=== PATIENT | female | born 1945 | race Two or more races ===

== ENCOUNTER 2019-11-23 18:57 | Emergency (ER) | payer MEDICARE, MEDICAID ==
[~2019-11-23] VITALS: Ht 152.4 cm; Wt 90.3 kg
[2019-11-23 19:16] VITALS: BP 138/94
--- NOTE | 2019-11-23 19:31 | PHYS DOC ---
Adult General Chief Complaint Chief Complaint: Congestion HPI HPI 73-year-old female presents to the emergency department with cough and congestion times one day. She does have positive sputum production. She describes symptoms started yesterday afternoon. She did have fever last night however that has subsequently resolved. She denies any nausea, vomiting, diarrhea. States her great-grandchildren have both had RSV. Patient's un derlying history of hypertension, diabetes, asthma, hypothyroid. Nothing makes her symptoms worse, nothing makes her symptoms better on exam. Review of Systems Review of Systems Constitutional: fever last night, not currently Eyes: Denies change in visual acuity, redness, or eye pain [] HENT: + congestion Respiratory: cough, SOB at times Cardiovascular: No additional information not addressed in HPI [] GI: Denies abdominal pain, nausea, vomiting, bloody stools or diarrhea [] Neurologic: Denies headache, focal weakness or sensory changes [] All other systems were reviewed and found to be within normal limits, except as documented in this note. Current Medications Current Medications Current Medications Medications (Trade) Dose Ordered Sig/Regla Start Time Stop Time Status Last Admin Dose Admin Albuterol/ Ipratropium (Duoneb) 3 ml 1X ONCE 11/23/19 19:45 11/23/19 19:46 DC 11/23/19 19:47 3 ML Prednisone (Prednisone) 60 mg 1X ONCE 11/23/19 19:45 11/23/19 19:46 DC 11/23/19 19:43 60 MG Allergies Allergies Allergies Coded Allergies Type Severity Reaction Last Updated Verified Iodinated Contrast Media Allergy Intermediate 11/23/19 Yes Physical Exam Physical Exam Constitutional: Well developed, well nourished, no acute distress, non-toxic appearance. [] HENT: Normocephalic, atraumatic, bilateral external ears normal, oropharynx moist, no oral exudates, nose normal. [] Neck: Normal range of motion, no tenderness, supple, no stridor. [] Cardiovascular:Heart rate regular rhythm, no murmur [] Lungs & Thorax: decreased BS, occasional wheeze Abdomen: Bowel sounds normal, soft, no tenderness, no masses, no pulsatile masses. [] Skin: Warm, dry, no erythema, no rash. [] Back: No tenderness, no CVA tenderness. [] Extremities: No tenderness, no edema. [] Neurologic: Alert and oriented X 3, no focal deficits noted. [] Psychologic: Affect normal, judgement normal, mood normal. [] Current Patient Data Vital Signs Vital Signs Date Time Temp Pulse Resp B/P (MAP) Pulse Ox O2 Delivery O2 Flow Rate FiO2 11/23/19 19:50 Room Air 11/23/19 19:16 97.8 86 16 138/94 (109) 93 97.8 EKG EKG [] Radiology/Procedures Radiology/Procedures Wet read reveals no acute consolidation appreciated, official read pending[] Course & Med Decision Making Course & Med Decision Making Pertinent Labs and Imaging studies reviewed. (See chart for details) [] 73-year-old female presents to the emergency department with cough and congestion times one day. She does have positive sputum production. She describes symptoms started yesterday afternoon. She did have fever last night however that has subsequently resolved. She denies any nausea, vomiting, diarrhea. States her great-grandchildren have both had RSV. Patient's underlying history of hypertension, diabetes, asthma, hypothyroid. Nothing makes her symptoms worse, nothing makes her symptoms better on exam. Duoneb x 1 Prednisone 60mg po x 1 Xray without acute consolidation appreciated Discussed with patient - recommend follow up with PCP, continue albuterol as needed per home, plan steroid burst over the next 2 days Discussed discharge plans with patient. Jessica Disclaimer Jessica Disclaimer This electronic medical record was generated, in whole or in part, using a voice recognition dictation system. Departure Departure Impression: Primary Impression: URI (upper respiratory infection) Additional Impression: Acute asthma flare Disposition: 01 HOME, SELF-CARE Condition: IMPROVED Referrals: NO PCP (PCP) Patient Instructions: Asthma, Adult, [id number], Upper Respiratory Infection, Adult, [id number] Additional Instructions: Recommend follow up with PCP 3 - 5 days Return to the ER with worsening symptoms, intractable pain, fever, altered mental status Tylenol/Motrin as needed for pain No antibiotics at this time CXR without acute process identified Prednisone 60mg po x 2 days Scripts [Prednisone] 10 mg No Conflict Check 60 MG PO DAILY for 2 Days, #12 % Prov: STEVEN SOLIS MD 11/23/19 Problem Qualifiers Primary Impression: URI (upper respiratory infection) URI type: unspecified URI Qualified Codes: J06.9 - Acute upper respiratory infection, unspecified Additional Impression: Acute asthma flare Asthma severity: mild Asthma persistence: unspecified Qualified Codes: J45.901 - Unspecified asthma with (acute) exacerbation STEVEN SOLIS MD Nov 23, 2019 19:31
[2019-11-23] MEDS: predniSONE 10 MG TABLET PO ONE (19:43)
[2019-11-23] MEDS: IPRATRPIUM/ALBUTEROL 0.5/2.5MG 3 ML NEBU. NEB ONE (19:47)
[2019-11-23] MEDS ORDERED: Prednisone PO (20:28)
--- NOTE | 2019-11-23 21:46 | RAD ---
CHEST PA LATERAL History: Cough, wheezing Comparison: None. Findings: Frontal and lateral views of the chest were obtained. The cardiomediastinal silhouette is normal. Pulmonary vasculature is normal. The lungs are clear. No pleural effusion or pneumothorax is seen. There is no acute bone abnormality. Degenerative changes of the cervical spine noted. IMPRESSION: No acute cardiopulmonary process. Electronically signed by: Darian Craig MD (11/23/2019 9:43 PM) [facility]
== END 2019-11-23 20:31 | disposition home or self-care (01) ==
LOC: ER 18:57
DX: J45.901 Unspecified asthma with (acute) exacerbation (principal); J06.9 Acute upper respiratory infection, unspecified; I10 Essential (primary) hypertension; E11.9 Type 2 diabetes mellitus without complications; E03.9 Hypothyroidism, unspecified; Z91.041 Radiographic dye allergy status
CPT/HCPCS: 71046; 94640; 99284; J7512; J7620

== ENCOUNTER 2019-11-26 20:55 | Emergency (ER) | payer MEDICARE, MEDICAID ==
[~2019-11-26] VITALS: Ht 152.4 cm; Wt 90.7 kg
[~2019-11-26 20:55] MED LIST: Prednisone PO
[2019-11-26 21:44] LABS: BASO # 0.1 x10^3/uL (0.0-0.2); BASO % 1 % (0-3); EOS # 0.1 x10^3/uL (0.0-0.7); EOS % 1 % (0-3); HEMATOCRIT 38.3 % (36.0-47.0); HEMOGLOBIN 12.5 g/dL (12.0-15.5); LYMPH # 0.8 x10^3/uL (1.0-4.8); LYMPH % 7 % (24-48); MEAN CORPUSCULAR HEMOGLOBIN 30 pg (25-35); MEAN CORPUSCULAR HGB CONC 33 g/dL (31-37); MEAN CORPUSCULAR VOLUME 91 fL (79-100); MONO # 0.5 x10^3/uL (0.0-1.1); MONO % 5 % (0-9); NEUT # 9.6 x10^3/uL (1.8-7.7); NEUT % 87 % (31-73); PLATELET COUNT 274 x10^3/uL (140-400); RED BLOOD COUNT 4.23 x10^6/uL (3.50-5.40); RED CELL DISTRIBUTION WIDTH 12.9 % (11.5-14.5); WHITE BLOOD COUNT 11.1 x10^3/uL (4.0-11.0)
--- NOTE | 2019-11-26 21:44 | PHYS DOC ---
Past Medical History Past Medical History: Asthma, Diabetes-Type II, Hypertension, Hypothyroid Past Surgical History: Cholecystectomy, Hysterectomy, Tubal ligation Additional Past Surgical Histo: KIDNEY STENTS Alcohol Use: None Drug Use: None Adult General Chief Complaint Chief Complaint: SHORTNESS OF BREATH HPI HPI 73-year-old female with underlying history of asthma, hypertension presents to [facility] emergency department with complaints of shortness of breath, wheeze. Patient was seen here on [place] by me with diagnosis of URI, steroids were provided, nebulizer treatments with improvement. Socially discharge home, states that over the last couple days she's had increasing shortness of breath, difficulty lying flat, more productive cough as well as chest pressure. She denies any headache or visual change, abdominal pain, nausea, vomiting. Review of Systems Review of Systems Constitutional: Denies fever or chills [] HENT: Denies nasal congestion or sore throat [] Respiratory: Cough/SOB Cardiovascular: No additional information not addressed in HPI [] GI: Denies abdominal pain, nausea, vomiting, bloody stools or diarrhea [] Neurologic: Denies headache, focal weakness or sensory changes [] All other systems were reviewed and found to be within normal limits, except as documented in this note. Current Medications Current Medications Current Medications Medications (Trade) Dose Ordered Sig/Regla Start Time Stop Time Status Last Admin Dose Admin Albuterol/ Ipratropium (Duoneb) 3 ml 1X ONCE 11/26/19 21:45 11/26/19 21:46 DC 11/26/19 22:16 3 ML Potassium Chloride (Klor-Con) 40 meq 1X ONCE 11/26/19 22:45 11/26/19 22:46 DC 11/26/19 22:47 40 MEQ Allergies Allergies Allergies Coded Allergies Type Severity Reaction Last Updated Verified Iodinated Contrast Media Allergy Intermediate 11/23/19 Yes egg Allergy Unknown 11/26/19 Yes Physical Exam Physical Exam Constitutional: Well developed, well nourished, mild distress, non-toxic appearance. [] HENT: Normocephalic, atraumatic, bilateral external ears normal, oropharynx moist, no oral exudates, nose normal. [] Eyes: PERRLA, EOMI, conjunctiva normal, no discharge. [] Cardiovascular:Heart rate regular rhythm, no murmur [] Lungs & Thorax: decreased BS, occasional wheeze Abdomen: Bowel sounds normal, soft, no tenderness, no masses, no pulsatile masses. [] Skin: Warm, dry, no erythema, no rash. [] Extremities: No tenderness, no edema. [] Neurologic: Alert and oriented X 3, no focal deficits noted. [] Psychologic: Affect normal, judgement normal, mood normal. [] Current Patient Data Vital Signs Vital Signs Date Time Temp Pulse Resp B/P (MAP) Pulse Ox O2 Delivery O2 Flow Rate FiO2 11/26/19 22:15 95 Room Air 11/26/19 21:16 98.2 88 20 160/100 (120) 98.2 Lab Values Laboratory Tests Test 11/26/19 21:10 11/26/19 21:50 White Blood Count 11.1 x10^3/uL (4.0-11.0) H Red Blood Count 4.23 x10^6/uL (3.50-5.40) Hemoglobin 12.5 g/dL (12.0-15.5) Hematocrit 38.3 % (36.0-47.0) Mean Corpuscular Volume 91 fL (79-100) Mean Corpuscular Hemoglobin 30 pg (25-35) Mean Corpuscular Hemoglobin Concent 33 g/dL (31-37) Red Cell Distribution Width 12.9 % (11.5-14.5) Platelet Count 274 x10^3/uL (140-400) Neutrophils (%) (Auto) 87 % (31-73) H Lymphocytes (%) (Auto) 7 % (24-48) L Monocytes (%) (Auto) 5 % (0-9) Eosinophils (%) (Auto) 1 % (0-3) Basophils (%) (Auto) 1 % (0-3) Neutrophils # (Auto) 9.6 x10^3/uL (1.8-7.7) H Lymphocytes # (Auto) 0.8 x10^3/uL (1.0-4.8) L Monocytes # (Auto) 0.5 x10^3/uL (0.0-1.1) Eosinophils # (Auto) 0.1 x10^3/uL (0.0-0.7) Basophils # (Auto) 0.1 x10^3/uL (0.0-0.2) Segmented Neutrophils % 89 % (35-66) H Lymphocytes % 7 % (24-48) L Monocytes % 3 % (0-10) Eosinophils % 1 % (0-5) Platelet Estimate Adequate (ADEQUATE) D-Dimer (Sarita) 0.78 ug/mlFEU (0.00-0.50) H Sodium Level 138 mmol/L (136-145) Potassium Level 3.2 mmol/L (3.5-5.1) L Chloride Level 100 mmol/L (98-107) Carbon Dioxide Level 31 mmol/L (21-32) Anion Gap 7 (6-14) Blood Urea Nitrogen 22 mg/dL (7-20) H Creatinine 0.9 mg/dL (0.6-1.0) Estimated GFR (Cockcroft-Gault) 61.5 BUN/Creatinine Ratio 24 (6-20) H Glucose Level 263 mg/dL (70-99) H Lactic Acid Level 1.4 mmol/L (0.4-2.0) Calcium Level 8.9 mg/dL (8.5-10.1) Total Bilirubin 0.5 mg/dL (0.2-1.0) Aspartate Amino Transferase (AST) 22 U/L (15-37) Alanine Aminotransferase (ALT) 27 U/L (14-59) Alkaline Phosphatase 175 U/L (46-116) H Troponin I Quantitative < 0.017 ng/mL (0.000-0.055) GT-Agq-R-Type Natriuretic Peptide 341 pg/mL (0-124) H Total Protein 7.3 g/dL (6.4-8.2) Albumin 3.7 g/dL (3.4-5.0) Albumin/Globulin Ratio 1.0 (1.0-1.7) Influenza Type A Antigen Negative (NEGATIVE) Influenza Type B Antigen Negative (NEGATIVE) Laboratory Tests 11/26/19 21:10 Laboratory Tests 11/26/19 21:10 EKG EKG EKG reveals normal sinus rhythm, heart rate 85, left axis deviation, no evidence of ST elevation AL, interpretation time 2138[] Radiology/Procedures Radiology/Procedures CXR wet read without acute process identified[] Course & Med Decision Making Course & Med Decision Making Pertinent Labs and Imaging studies reviewed. (See chart for details) []73-year-old female with underlying history of asthma, hypertension presents to the emergency department with complaints of shortness of breath, wheeze. Patient was seen here on [place] by me with diagnosis of URI, steroids were provided, nebulizer treatments with improvement. Socially discharge home, states that over the last couple days she's had increasing shortness of breath, difficulty lying flat, more productive cough as well as chest pressure. She denies any headache or visual change, abdominal pain, nausea, vomiting. Labs/Imaging reviewed No evidence of acute consolidation appreciated to CXR Lactic 1.4, Trop nml, K 3.2 Patient improved with duoneb in ER Ddimer 0.78, VTE unlikely based on age adjusted Ambulatory O2 - 92% Discussed dc home with abx and recommend follow up with PCP Return precautions provided Dragon Disclaimer Dragon Disclaimer This electronic medical record was generated, in whole or in part, using a voice recognition dictation system. Departure Departure Impression: Primary Impression: Bronchitis Additional Impression: Dyspnea Disposition: 01 HOME, SELF-CARE Condition: IMPROVED Referrals: NO PCP (PCP) Patient Instructions: Bronchitis, [id number] Additional Instructions: Recommend follow up with PCP 3 - 5 days Return to the ER with worsening symptoms, intractable pain, fever, altered mental status Tylenol/Motrin as needed for pain Take antibiotics as directed Scripts Azithromycin (AZITHROMYCIN TABLET) 500 Mg Tablet 1 TAB PO DAILY for 5 Days, #5 TAB 0 Refills Prov: STEVEN SOLIS MD 11/26/19 Problem Qualifiers Additional Impression: Dyspnea Dyspnea type: shortness of breath Qualified Codes: R06.02 - Shortness of breath STEVEN SOLIS MD Nov 26, 2019 21:44
[2019-11-26] MEDS ORDERED: IPRATRPIUM/ALBUTEROL 0.5/2.5MG 3 ML NEBU. NEB ONE (21:45)
[2019-11-26 21:55] LABS: CALCIUM 8.9 mg/dL (8.5-10.1); CREATININE 0.9 mg/dL (0.6-1.0); GFR 61.5; POTASSIUM 3.2 mmol/L (3.5-5.1)
[2019-11-26 22:00] LABS: ALBUMIN 3.7 g/dL (3.4-5.0); TOTAL BILIRUBIN 0.5 mg/dL (0.2-1.0); TOTAL PROTEIN 7.3 g/dL (6.4-8.2)
[2019-11-26 22:14] LABS: INFLUENZA A PATIENT NEGATIVE (NEGATIVE); INFLUENZA B PATIENT NEGATIVE (NEGATIVE)
[2019-11-26 22:45] VITALS: BP 151/92
[2019-11-26] MEDS ORDERED: POTASSIUM CHLORIDE 20 MEQ TABLET.ER. PO ONE (22:45)
[2019-11-26 22:57] LABS: % EOS 1 % (0-5); % LYMPHS 7 % (24-48); % MONOS 3 % (0-10); % SEGS 89 % (35-66); PLT ESTIMATE ADEQUATE (ADEQUATE)
[2019-11-26] MEDS ORDERED: AZIT500T4 PO (23:11)
[2019-11-26] MEDS ORDERED: ALBU2.5V5 NEB (23:14)
--- NOTE | 2019-11-27 07:56 | RAD ---
EXAM: CHEST 1 VIEW History: Chest pressure, shortness of breath COMPARISON: 11/23/2019 TECHNIQUE: Single portable radiograph of the chest FINDINGS: The cardiac silhouette is unremarkable. The lungs are clear bilaterally. The costophrenic sulci are clear and well demarcated. IMPRESSION: No radiographic evidence of an acute cardiopulmonary process. Electronically signed by: Donnie Montalvo MD (11/27/2019 7:53 AM) [facility]
--- NOTE | 2019-11-28 06:17 | EKG ---
[facility] [address] [place] [address] Test Date: 2019-11-26 Test Time: 21:10:46 Pat Name: MELISSA VALENTE Department: Room: Gender: F Material Control Associate: : [id number] Requested By: STEVEN SOLIS Order Number: [id number] Reading MD: Measurements Intervals [place] Rate: 84 P: -38 MO: 106 QRS: -14 QRSD: 90 T: -14 QT: 434 QTc: 516 Interpretive Statements SUPRAVENTRICULAR RHYTHM LEFTWARD AXIS R-S TRANSITION ZONE IN V LEADS DISPLACED TO THE LEFT T ABNORMALITY IN INFERIOR LEADS PROLONGED QT NON SPECIFIC ST DEPRESSION ABNORMAL ECG No previous ECG available for comparison
== END 2019-11-26 23:31 | disposition home or self-care (01) ==
LOC: ER 20:55
DX: J45.909 Unspecified asthma, uncomplicated (principal); E11.9 Type 2 diabetes mellitus without complications; E03.9 Hypothyroidism, unspecified; I10 Essential (primary) hypertension; Z91.041 Radiographic dye allergy status; Z91.012 Allergy to eggs
CPT/HCPCS: 36415; 71045; 80053; 83605; 83880; 84484; 85007; 85025; 85379; 87804; 93005; 94640; 99285; J7620

== ENCOUNTER → 2020-01-28 | Outpatient (CLI) | payer MEDICARE, MEDICAID ==
[~2020-01-28] MED LIST changes: +ALBU2.5V5 NEB; +AZIT500T4 PO
--- NOTE | 2020-02-01 12:20 | RAD ---
History: Routine screening. Technique: Bilateral digital mammographic routine views were obtained with 2-D and 3-D technique including use of CAD - computer aided detection. Comparison: None. This is a new baseline.. Findings: Breast Tissue Density B :The breast tissue is composed of mixed fatty and fibroglandular tissue. There are no suspicious masses, microcalcifications or areas of architectural distortion. Impression: Negative mammogram. BI-RADS Category 1: Negative. Normal interval followup. A mammogram does not have 100% sensitivity and therefore a negative imaging study should not delay further work up of a suspicious abnormality. The patient will receive a letter with the results in the mail. Patient information is entered into the reminder system with a target due date for the next screening mammogram. The patient will receive a reminder. "Our facility is accredited by the [employer] Mammography Program." BI-RADS 1 -- negative findings (within normal)
== END | disposition home or self-care (01) ==
LOC: MAMMO 09:27
PROVIDERS: ATTEND Family Medicine
DX: Z12.31 Encounter for screening mammogram for malignant neoplasm of breast (principal)
CPT/HCPCS: 77063; 77067